=== PATIENT | male | born 1950 | race Caucasian/White ===

== ENCOUNTER 2020-10-23 08:51 | Day surgery (SDC) | payer OTHER ==
[2020-10-23] MEDS ORDERED: LIDOCAINE 1% MPF 5 ML VIAL ONE (10:01)
[2020-10-23] MEDS ORDERED: propofoL 200 MG/20 ML VIAL IV ONE ×2 (10:01)
--- NOTE | 2020-10-23 10:35 | ENDO RPT ---
[address], [id number] COLONOSCOPY PROCEDURE REPORT EXAM DATE: 10/23/2020 PATIENT NAME: Choco Croft MR #: [id number] BIRTHDATE: 1950 ATTENDING: Librado Vyas DR STATUS: outpatient SQL ENGINEER: Yarelis Ferrell RN and Abbie GERONIMO INDICATIONS: The patient is a 70 yr old Male here for a colonoscopy due to history of polyps and colon cancer screening PROCEDURE PERFORMED: Colonoscopy with biopsy - cold polypectomy MEDICATIONS: Per Anesthesia. ESTIMATED BLOOD LOSS: None CONSENT: The patient understands the risks and benefits of the procedure and understands that these risks include, but are not limited to: sedation, allergic reaction, infection, perforation and/or bleeding. Alternative means of evaluation and treatment include, among others: physical exam, x-rays, and/or surgical intervention. The patient elects to proceed with this endoscopic procedure. DESCRIPTION OF PROCEDURE: During intra-op preparation period all mechanical medical equipment was checked for proper function. Hand hygiene and appropriate measures for infection prevention was taken. Procedure, possible complications, alternatives including, but not limited to possibility of bleeding, perforation, tear, infection, sepsis, need for surgery, need for blood transfusion, were explained to the patient. After the risks, benefits and alternatives of the procedure were thoroughly explained, Informed consent was verified, confirmed and timeout was successfully executed by the treatment team. The patient was placed in the left lateral position. A digital rectal exam was performed and revealed internal hemorrhoids. After appropriate level of anesthesia, the scope was passed. The EC-[id number] ([id number]) endoscope was introduced through the anus and advanced to the cecum, which was identified by both the appendix and ileocecal valve. The quality of the prep was fair. The instrument was then slowly withdrawn as the colon was fully examined. Scope withdrawal time was 16 minutes. COLON FINDINGS: Three smooth and polypoid shaped pedunculated polyps measuring 10 mm in size were found in the sigmoid colon, right colon, and descending colon. A polypectomy was performed using snare cautery and with a cold snare. The resection was complete, the polyp tissue was completely retrieved and sent to histology. Small internal hemorrhoids were found. Retroflexed views revealed no abnormalities. The scope was then completely withdrawn from the patient and the procedure terminated. ADVERSE EVENTS: There were no complications. IMPRESSIONS: 1. Three pedunculated polyps were found in the sigmoid colon, right colon, and descending colon; polypectomy was performed using snare cautery and with a cold snare 2. Small internal hemorrhoids RECOMMENDATIONS: 1. avoid NSAIDS for 2 weeks 2. await biopsy results 3. fiber rich diet 4. follow-up: office 2 week(s) 5. Monitor for any evidence of rectal bleeding. 6. hemorrhoidal hygiene 7. yearly hemoquant RECALL: Return in 1 year(s) for Colonoscopy, pending biopsy results. Size and features consistent with adenomatous polyps Librado Vyas DR eSigned: Librado Vyas DR 10/23/2020 10:34 AM cc: CPT CODES: ICD9 CODES: PATIENT NAME: Choco Croft MR#: [id number]
[2020-10-23 11:51] VITALS: TEMP 97; O2SAT 100
[2020-10-23 11:54] VITALS: BP 106/68
== END 2020-10-23 11:15 | disposition home or self-care (01) ==
LOC: OR 08:51
PROVIDERS: ATTEND Surgery
PROC: 0DBN8ZX Excision of Sigmoid Colon, Via Natural or Artificial Opening Endoscopic, Diagnostic (ICD-10-PCS; 2020-10-23)
PROC: 0DBF8ZX Excision of Right Large Intestine, Via Natural or Artificial Opening Endoscopic, Diagnostic (ICD-10-PCS; 2020-10-23)
PROC: 0DBM8ZX Excision of Descending Colon, Via Natural or Artificial Opening Endoscopic, Diagnostic (ICD-10-PCS; principal; 2020-10-23 10:00)
DX: Z12.11 Encounter for screening for malignant neoplasm of colon (principal); D12.4 Benign neoplasm of descending colon; D12.5 Benign neoplasm of sigmoid colon; K64.8 Other hemorrhoids; Z20.822 Contact with and (suspected) exposure to COVID-19
CPT/HCPCS: 88305; 45385; U0003; J2704 ×2